=== PATIENT | male | born 1975 | race Caucasian/White ===

== ENCOUNTER 2016-09-16 06:15 | Emergency (ER) | payer OTHER ==
[~2016-09-16] VITALS: Ht 170.2 cm; Wt 99.8 kg
[2016-09-16 09:07] VITALS: BP 168/80
== END 2016-09-16 09:07 | disposition home or self-care (01) ==
LOC: ED 06:15
DX: S16.1XXA Strain of muscle, fascia and tendon at neck level, initial encounter (principal); S01.81XA Laceration without foreign body of other part of head, initial encounter; V49.40XA Driver injured in collision with unspecified motor vehicles in traffic accident, initial encounter; Y93.89 Activity, other specified; Y99.8 Other external cause status; Y92.89 Other specified places as the place of occurrence of the external cause
CPT/HCPCS: J1885; J2001